=== PATIENT | female | born 1945 | race Caucasian/White ===

== ENCOUNTER 2018-01-31 09:00 | Day surgery (SDC) | payer MEDICARE, OTHER ==
[2018-01-30 15:05] LABS: BASOPHILS 0.3 % (0-2); HEMATOCRIT 37.7 % (36.0-48.0); HEMOGLOBIN 12.6 g/dL (12-16); IMMATURE GRANULOCYTES 0.3 % (0-5); LYMPHOCYTES 37.4 % (15-50); MCH 31.3 pg (26.0-34.0); MCHC 33.4 g/dL (31.0-37.0); MCV 93.5 fL (80.0-100.0); MEAN PLATELET VOLUME 10.3 fL (7.4-10.4); PLATELET COUNT 161 10x3/uL (130-400); RBC 4.03 10x6/uL (4.00-5.40); RDW 12.9 % (11.5-14.5); WBC 7.8 10x3/uL (4.8-10.8)
[2018-01-30 15:12] LABS: ANION GAP 9.5 mmol/L (8-16); CALCIUM 9.8 mg/dL (8.5-10.1); CARBON DIOXIDE 29.4 mmol/L (21.0-32.0); CREATININE - SERUM 0.9 mg/dL (0.6-1.3); POTASSIUM - SERUM 3.9 mmol/L (3.5-5.1)
[~2018-01-31] VITALS: Ht 177.8 cm; Wt 103.9 kg
--- NOTE | ~2018-01-31 | OP ---
PATIENT NAME: JUAN C NORIEGA MEDICAL RECORD: [id number] :41 LOCATION:D[facility] ADMISSION DATE: SURGEON: JUICE SNOW DATE OF OPERATION: 01/31/2018 SURGEON: Juice Snow DPM PREOPERATIVE DIAGNOSES: 1. Hallux abductovalgus deformity, right foot. 2. Hammertoe deformity, second toe, right foot. 3. Hammertoe deformity, third toe, right foot. POSTOPERATIVE DIAGNOSES: 1. Hallux abductovalgus deformity, right foot. 2. Hammertoe deformity, second toe, right foot. 3. Hammertoe deformity, third toe, right foot. PROCEDURE: 1. Robert-Christos bunionectomy, right foot. 2. Arthrodesis second proximal interphalangeal joint, second toe, right foot. 3. Arthrodesis, third proximal interphalangeal joint, third toe, right foot. ANESTHESIA: General. HEMOSTASIS: Pneumatic ankle tourniquet inflated to 250 mmHg. ESTIMATED BLOOD LOSS: Minimal. MATERIALS: 3-0 Vicryl, 4-0 nylon, one 2.5 x 20 mm headless dart Dart-Fire screw and one 9 mm Quick Staple (both [employer]), two 0.045 inch K-wires, left percutaneous. INJECTABLES: 20 cc of 0.5% bupivacaine plain. The patient has longstanding history of pain associated with the above-mentioned deformities. She has tried wider shoes to no avail. She also underwent surgical correction last year, but did not have good results, they relieved her pain. She is here today for further surgical correction. We have discussed the proposed procedures. Risks and benefits were discussed. Complications were reviewed. All questions were answered. She was appropriately consented for the above-mentioned procedures. The patient was brought into the operating room and placed on the operating table in a supine position. A timeout was called with Dr. Snow, who identified the patient, the surgical site, and the surgeries to be performed. Once appropriate anesthesia was obtained, the foot was prepped and draped in the usual aseptic manner. The pneumatic ankle tourniquet was inflated to 250 mmHg on the well-padded right ankle. PROCEDURE #1: Robert-Christos bunionectomy, right foot. Attention was directed to the dorsal aspect of the first metatarsophalangeal joint where a 6 cm linear incision was made just medial to the extensor hallucis OPERATIVE REPORT [id number] DEBORAHBOLIVARSHANNANJUAN C Tiara longus tendon. This incision was carried deep to soft tissue with care being taken to retract all vital neurovascular structures. All bleeders were cauterized along the way. Next, the first intermetatarsal space was entered utilizing both sharp and blunt dissection. The conjoined tendon of the abductor hallucis muscle belly was identified at the base of the proximal phalanx and was sharply transected. Attention was then directed further proximally to the level of the fibular sesamoidal ligament and it was also sharply transected. Attention was then redirected to the dorsal aspect of the first metatarsophalangeal joint where the periosteum was reflected from the joint, thus exposing the hypertrophied medial eminence and the head of the first metatarsal and the base of the proximal phalanx. Next, utilizing a sagittal saw, all hypertrophied bone was removed from the head of the first metatarsal. Utilizing a sagittal saw, a V-shaped osteotomy was created in the head of the first metatarsal. This was a through and through osteotomy, the capital fragment was translocated laterally and impacted upon the first metatarsal shaft. Next, utilizing manufacture's recommended technique, one 2.5-mm screw was placed across the osteotomy. All remaining bone was removed from the medial aspect of the first metatarsal shaft. Attention was then directed to the base of the proximal phalanx where a V-shaped osteotomy was created. The apex of the osteotomy was located medially, wedge of bone was removed with the osteotomy. The osteotomy was reduced and fixation was obtained utilizing one 9 mm Quick Staple. The surgical site was then irrigated with copious amounts of normal sterile saline via bulb syringe. The periosteum was reapproximated and coapted utilizing 3-0 Vicryl. The subcutaneous was then reapproximated and coapted using 3-0 Vicryl. The skin was then reapproximated and coapted using 4-0 nylon. PROCEDURE #2: Arthrodesis second proximal interphalangeal joint, second toe, right foot. Attention was directed to the dorsal aspect of the second toe of the right foot where a 3-cm linear incision was made. This incision was carried deep to soft tissue with care being taken to retract all vital neurovascular structures. All bleeders were cauterized along the way. The extensor tendon was then transected from medial to lateral at the level of the proximal interphalangeal joint. All cartilage and fibrotic tissue was removed from the head of the first metatarsal as well as the base of the middle phalanx. A K-wire was then driven from proximal to distal through the middle phalanx exiting the toe distally. The K-wire was then retrograded back into the proximal phalanx. Good bony apposition was noted between the proximal phalanx and the middle phalanx. The surgical site was then irrigated with copious amounts of normal sterile saline via bulb syringe. The K-wire was then cut and bent as appropriate for percutaneous pinning. The extensor tendon was then reapproximated and coapted using 3-0 Vicryl. The subcutaneous was then reapproximated and coapted using 3-0 Vicryl. The skin was then reapproximated and coapted using 4-0 nylon. PROCEDURE #3: Arthrodesis, third toe, right foot. The exact same procedure that was performed in procedure #2 (arthrodesis, second toe, right foot) was performed on the third toe of the right foot without exception. Dressings consisting of Xeroform, 4 x 4's, Kerlix, and Coban was applied to the right foot. The pneumatic ankle tourniquet was deflated and cap refill time is OPERATIVE REPORT [id number] JUAN C NORIEGA immediate to all digits of the right foot. The patient tolerated the procedure and anesthesia well. She left the operating room with vital signs stable. The patient was discharged home with instructions to ice and elevate the right foot. She was dispensed a boot to further help offload the area. She has my cell phone number for any after hour difficulties. We will follow up with her next week. There were no complications with this procedure. TRANSINT:[id number] Voice Confirmation ID: [id number] DOCUMENT ID: [id number] JUICE SNOW at 1735 CC: [id number] DICTATION DATE: 01/31/18 1509 STATIONARY ENGINEER APPRENTICE: 01/31/18 1550 [facility] 01/31/18 [id number] [place] [address]
[~2018-01-31 09:00] MED LIST: ASPIRIN EC81 M1 PO; CAFFEINE PO; CRANBERRY 400 M1 TA1 PO; ELAVIL75 MG PO; LEVOTHYROXINE50 MCG PO; LIPITOR40 MG PO; NORVASC10 MG PO; PREMARIN0.625 MG PO; PRINIVIL20 MG PO; SUDOGEST120 MG PO
[2018-01-31 10:29] VITALS: BP 150/74; Ht 177.8 cm; Wt 103.9 kg
== END 2018-01-31 16:25 | disposition home or self-care (01) ==
LOC: D.OPS 09:00 → D.PAN 11:30 → D.OPS 16:25
PROVIDERS: Anesthesiology
DX: M20.11 Hallux valgus (acquired), right foot (principal); M20.41 Other hammer toe(s) (acquired), right foot; Z01.812 Encounter for preprocedural laboratory examination